=== PATIENT | male | born 1990 | race Caucasian/White ===

== ENCOUNTER 2020-01-31 14:30 | Emergency (ER) | payer BC, OTHER ==
[~2020-01-31] VITALS: Ht 175 cm; Wt 85.0 kg
--- NOTE | 2020-01-31 14:58 | Diagnostic Imaging Report ---
Indication: Hypertension. Time of exam: 2:50 PM No prior studies are available for comparison. The heart size is normal. The pulmonary vascularity is unremarkable. The lungs are clear. No infiltrate, effusion or pneumothorax is detected. Impression: No acute cardiopulmonary process is detected. Dictated by: Dictated on workstation # [id number]
[2020-01-31] MEDS ORDERED: amLODIPine 10 MG (NORVASC) TAB PO ONE (15:00)
[2020-01-31] MEDS ORDERED: cloNIDine 0.1 MG (CATAPRES) TAB PO ONE ×2 (15:00→15:45)
--- NOTE | 2020-01-31 15:03 | ED General ---
General Chief Complaint: Cardiac/General Problems Stated Complaint: HIGH BP Nursing Triage Note: PT WAS IN THE CLINIC AT HIS FIRST VISIT TO DR. ALEXIS AND HIS BLOOD PRESSURE WAS HIGH SO HE WAS SENT TO ER. PT ADMITS TO DRINKING AT LEAST 10-15 BEERS A DAY FOR QUITE A FEW YEARS. PT DENIES SYMPTOMS. Nursing Sepsis Screen: No Definite Risk History of Present Illness Date Seen by Provider: Jan 31, 2020 Time Seen by Provider: 14:35 Initial Comments The patient is a 29-year-old male with a history of long-standing daily alcohol abuse (drinks 10-15 beers per day). He is otherwise healthy. She presents for evaluation of elevated blood pressure measured at the primary care office just prior to arrival. Patient had presented to Dr. Alexis for an establishment of care appointment and his blood pressure was noted to be quite elevated. He was b rought here for further evaluation. Patient firmly and repeatedly denies any symptoms and states that he feels entirely well. He has not been tapering his drinking recently and is not tremulous or anxious, and heart rate is appropriate here. He specifically denies fevers, nausea or vomiting, headache, focal weakness, numbness, tingling, neck stiffness/pain/meningismus, vision changes, shortness of breath or chest pain at any time recently, abdominal pain, flank pain, back pain, dysuria or hematuria, Allergies and Home Medications Allergies Coded Allergies: No Known Drug Allergies (Unverified , 01/31/20) Patient Home Medication List Home Medication List Reviewed: Yes Review of Systems Review of Systems Constitutional: no symptoms reported All Other Systems Reviewed Negative Unless Noted: Yes (Negative excepted noted.) Past Finxuij-Jazidh-Uzdaue Hx Past Med/Social Hx: Reviewed Nursing Past Med/Soc Hx Patient Social History Recent Foreign Travel: No Contact w/Someone Who Travel: No Recent Infectious Disease Expo: No Physical Abuse: No Sexual Abuse: No Mistreated: No Fear: No Family Medical History Reviewed Nursing Family Hx Physical Exam Vital Signs Vital Signs - First Documented 01/31/20 14:44 Temp 36.8 Pulse 104 Resp 16 B/P (MAP) 190/125 (146) Pulse Ox 99 O2 Delivery Room Air Capillary Refill : Less Than 3 Seconds Height, Weight, BMI Height: '" Weight: lbs. oz. kg; 27.00 BMI Method: General Appearance: No Apparent Distress Comments This is a well-appearing 29-year-old male who is nontoxic and in no acute distress. Head is normocephalic and atraumatic. Neck is supple and nontender. Oropharynx is moist. Lungs are clear to auscultation at all stations. There is normal S1 and S2 without rubs or gallops and capillary refill is appropriate, less than 2 seconds globally. Abdomen is soft, nontender nondistended. Skin is warm and dry without cyanosis, clubbing or edema. Psychiatrically, the patient didn't straights appropriate mood and affect and is alert. Neurologically, cranial nerves II through XII are intact and there are no lateralizing deficits noted. Speech is normal. Leg which is normal. Coordination is normal. There is no dysmetria thing her to nose or [id number]-onis bilaterally. Strength is 5 out of 5 in all joints of bilateral upper and lower cavity. Sensation is intact to light touch in bilateral upper and lower extremity. Patient relates with a narrow, steady gait in the emergency department and is alert and oriented 4. Progress/Results/Core Measures Suspected Sepsis Recent Fever Within 48 Hours: No Infection Criteria Present: None New/Unexplained Altered Menta: No Sepsis Screen: No Definite Risk SIRS Temperature: Pulse: 104 Respiratory Rate: 16 Laboratory Tests 01/31/20 14:55: White Blood Count 7.0 Blood Pressure 190 /125 Mean: 146 Laboratory Tests 01/31/20 14:55: Creatinine 0.91, Platelet Count 163, Total Bilirubin 1.1H Results/Orders Lab Results Laboratory Tests Test 01/31/20 14:55 Range/Units White Blood Count 7.0 4.3-11.0 10^3/uL Red Blood Count 5.01 4.35-5.85 10^6/uL Hemoglobin 16.9 13.3-17.7 G/DL Hematocrit 46 40-54 % Mean Corpuscular Volume 91 80-99 FL Mean Corpuscular Hemoglobin 34 25-34 PG Mean Corpuscular Hemoglobin Concent 37 H 32-36 G/DL Red Cell Distribution Width 12.0 10.0-14.5 % Platelet Count 163 130-400 10^3/uL Mean Platelet Volume 10.7 H 7.4-10.4 FL Neutrophils (%) (Auto) 56 42-75 % Lymphocytes (%) (Auto) 35 12-44 % Monocytes (%) (Auto) 8 0-12 % Eosinophils (%) (Auto) 1 0-10 % Basophils (%) (Auto) 0 0-10 % Neutrophils # (Auto) 4.0 1.8-7.8 X 10^3 Lymphocytes # (Auto) 2.4 1.0-4.0 X 10^3 Monocytes # (Auto) 0.5 0.0-1.0 X 10^3 Eosinophils # (Auto) 0.1 0.0-0.3 10^3/uL Basophils # (Auto) 0.0 0.0-0.1 10^3/uL Sodium Level 140 135-145 MMOL/L Potassium Level 3.5 L 3.6-5.0 MMOL/L Chloride Level 102 98-107 MMOL/L Carbon Dioxide Level 25 21-32 MMOL/L Anion Gap 13 5-14 MMOL/L Blood Urea Nitrogen 8 7-18 MG/DL Creatinine 0.91 0.60-1.30 MG/DL Estimat Glomerular Filtration Rate > 60 BUN/Creatinine Ratio 9 Glucose Level 97 70-105 MG/DL Calcium Level 9.5 8.5-10.1 MG/DL Corrected Calcium 8.5-10.1 MG/DL Total Bilirubin 1.1 H 0.1-1.0 MG/DL Aspartate Amino Transf (AST/SGOT) 48 H 5-34 U/L Alanine Aminotransferase (ALT/SGPT) 69 H 0-55 U/L Alkaline Phosphatase 80 40-136 U/L Troponin I < 0.30 <0.30 NG/ML Total Protein 7.5 6.4-8.2 GM/DL Albumin 4.8 H 3.2-4.5 GM/DL My Orders Orders - XIAO LUCIA MD Cbc With Automated Diff (01/31/20 14:47) Comprehensive Metabolic Panel (01/31/20 14:47) Troponin I Fs (01/31/20 14:47) Ekg Tracing (01/31/20 14:47) Chest 1 View Ap/Pa Only (01/31/20 14:47) Amlodipine Tablet (Norvasc Tablet) (01/31/20 15:00) Clonidine Tablet (Catapres Tablet) (01/31/20 15:00) Clonidine Tablet (Catapres Tablet) (01/31/20 15:45) Potassium Chloride (Tablet) (K Dur Table (01/31/20 16:00) Medications Given in ED Current Medications Medications Dose Ordered Sig/Maynor Route Start Time Stop Time Status Last Admin Dose Admin Amlodipine Besylate 10 mg ONCE ONCE PO 01/31/20 15:00 01/31/20 15:01 DC 01/31/20 15:00 10 MG Clonidine HCl 0.1 mg ONCE ONCE PO 01/31/20 15:00 01/31/20 15:01 DC 01/31/20 15:00 0.1 MG Clonidine HCl 0.1 mg ONCE ONCE PO 01/31/20 15:45 01/31/20 15:46 DC 01/31/20 15:44 0.1 MG Vital Signs/I&O 01/31/20 14:44 Temp 36.8 Pulse 104 Resp 16 B/P (MAP) 190/125 (146) Pulse Ox 99 O2 Delivery Room Air Capillary Refill : Less Than 3 Seconds Blood Pressure Mean: 146 Progress Note : Time: 15:52 Progress Note Labs and imaging are unrevealing of any evidence of acute process aside from mild transaminase and total bilirubin elevations in the setting of daily alcohol abuse, likely chronic. Patient also has mildly low potassium which has been repleted orally. Blood pressure has come down on oral amlodipine and clonidine. Case is rediscussed with Dr. Alexis who would like the patient started on both agents and will see the patient in follow-up in the office first thing tomorrow morning. Patient remained asystematic. He understands that if he feels worse is that of better or develops other new symptoms of concern that he will need to return to the emergency department immediately for reevaluation. All questions are answered. ECG Comment Sinus rhythm, rate ventricular conduction delay, no acute ST elevation or depression, rate 93, OR 186, QRS 116, QTC 437, EP interpretation. Diagnostic Imaging Comments No acute cardiopulmonary process per EP and rad interp Departure Impression Primary Impression: Elevated blood pressure reading without diagnosis of hypertension Additional Impressions: Transaminasemia Acute hypokalemia Disposition: HOME, SELF-CARE Condition: Improved Departure-Patient Inst. Referrals: ALEX ALEXIS MD Patient Instructions: High Blood Pressure in Adults Add. Discharge Instructions: Follow-up in the office with Dr. Alexis at 8:00 AM tomorrow morning for a reevaluation of your blood pressure and a discussion of next steps in care. Take the blood pressure medications as prescribed in the meantime. Return to the emergency department right away with worsening symptoms of any kind or with any other new symptoms of concern. Scripts Clonidine HCl (Clonidine HCl) 0.1 Mg Tablet 0.1 MG PO BID, #30 TAB Prov: XIAO LUCIA MD 01/31/20 Amlodipine Besylate (Amlodipine Besylate) 10 Mg Tablet 10 MG PO DAILY for 30 Days, TAB Prov: XIAO LUCIA MD 01/31/20 XIAO LUCIA MD Jan 31, 2020 15:03
[2020-01-31 15:07] LABS: HEMATOCRIT 46 % (40-54); HEMOGLOBIN 16.9 G/DL (13.3-17.7); MEAN CORPUSCULAR HEMOGLOBIN 34 PG (25-34); MEAN CORPUSCULAR VOLUME 91 FL (80-99)
[2020-01-31 15:08] LABS: BASOPHILS % (AUTO) 0 % (0-10); EOSINOPHILS % (AUTO) 1 % (0-10); LYMPHOCYTES % (AUTO) 35 % (12-44); MEAN CORPUSCULAR HGB CONC 37 G/DL (32-36); MEAN PLATELET VOLUME 10.7 FL (7.4-10.4); MONOCYTES % (AUTO) 8 % (0-12); NEUTROPHILS % (AUTO) 56 % (42-75); PLATELET COUNT 163 10^3/uL (130-400)
[2020-01-31 15:09] LABS: EOSINOPHILS # (AUTO) 0.1 10^3/uL (0.0-0.3); LYMPHOCYTES # (AUTO) 2.4 X 10^3 (1.0-4.0); MONOCYTES # (AUTO) 0.5 X 10^3 (0.0-1.0)
[2020-01-31 15:26] LABS: ALKALINE PHOSPHATASE 80 U/L (40-136); BILIRUBIN,TOTAL 1.1 MG/DL (0.1-1.0); BUN/CREATININE RATIO 9; CALCIUM 9.5 MG/DL (8.5-10.1); CARBON DIOXIDE 25 MMOL/L (21-32); CHLORIDE 102 MMOL/L (98-107); CREATININE SERUM 0.91 MG/DL (0.60-1.30); GFR ESTIMATED > 60; GLUCOSE 97 MG/DL (70-105); POTASSIUM 3.5 MMOL/L (3.6-5.0); SODIUM 140 MMOL/L (135-145)
[2020-01-31 15:27] LABS: ALANINE AMINOTRANSFERASE 69 U/L (0-55); ALBUMIN 4.8 GM/DL (3.2-4.5); TOTAL PROTEIN 7.5 GM/DL (6.4-8.2)
[2020-01-31] MEDS ORDERED: AMLO10TA7 PO (15:56)
[2020-01-31] MEDS ORDERED: CLON0.1T PO (15:56)
[2020-01-31] MEDS ORDERED: KCL 20 MEQ TAB (K-DUR) PO ONE (16:00)
[2020-01-31 16:17] VITALS: BP 197/103
--- OUTSIDE RECORDS SUMMARY | 2020-01-31 17:12 | XMS REPORT | Continuity of Care Document ---
Author Organization Unknown Address Unknown Phone Unavailable Allergies There is no data. Medications There is no data. Problems There is no data. Procedures There is no data. Results There is no data. Encounters ACCT No. Visit Date/Time Discharge Status Pt. Type Provider Facility Loc./Unit Complaint [id number] 10/20/2019 17:30:00 10/20/2019 23:59: 59 [facility]
== END 2020-01-31 16:19 | disposition home or self-care (01) ==
LOC: ER FS 14:32
DX: R03.0 Elevated blood-pressure reading, without diagnosis of hypertension (principal); R74.0 Nonspecific elevation of levels of transaminase and lactic acid dehydrogenase [LDH]; E87.6 Hypokalemia
CPT/HCPCS: 36415; 71045; 80053; 84484; 85025; 93005